=== PATIENT | male | born 1970 | race African-American/Black ===

== ENCOUNTER 2019-04-16 14:18 | Emergency (ER) | payer MEDICARE ==
[~2019-04-16] VITALS: Ht 182.9 cm; Wt 100.0 kg
[2019-04-16] MEDS ORDERED: ZPAK PO (15:31)
[2019-04-16 16:00] VITALS: BP 139/80
== END 2019-04-16 16:00 | disposition home or self-care (01) ==
LOC: ED 14:18
DX: B34.9 Viral infection, unspecified (principal); J06.9 Acute upper respiratory infection, unspecified